=== PATIENT | male | born 1985 | race Caucasian/White ===

== ENCOUNTER 2018-08-16 12:24 | Emergency (ER) | payer SELFPAY ==
[~2018-08-16] VITALS: Ht 180.3 cm; Wt 79.5 kg
[2018-08-16 12:37] VITALS: BP 133/88; TEMP 98.2
[2018-08-16] MEDS ORDERED: DOXYCYCLINE 10100 MG PO (12:56)
[2018-08-16 13:02] VITALS: PULSE 60
== END 2018-08-16 13:03 | disposition home or self-care (01) ==
LOC: COL.ER 12:24
DX: K13.0 Diseases of lips (principal)

== ENCOUNTER 2018-08-22 14:39 | Emergency (ER) | payer SELFPAY ==
[~2018-08-22 14:39] MED LIST: DOXYCYCLINE 10100 MG PO
[2018-08-22 14:49] VITALS: BP 156/98; PULSE 67; TEMP 98.6
== END 2018-08-22 15:08 | disposition home or self-care (01) ==
LOC: COL.ER 14:39
DX: S01.511D Laceration without foreign body of lip, subsequent encounter (principal); X58.XXXD Exposure to other specified factors, subsequent encounter

== ENCOUNTER 2019-08-05 20:25 | Emergency (ER) | payer SELFPAY ==
[~2019-08-05] VITALS: Ht 172.7 cm; Wt 77.3 kg
[2019-08-05 20:29] VITALS: TEMP 98.8
[2019-08-05 21:40] VITALS: BP 136/90; PULSE 81
== END 2019-08-05 21:43 | disposition home or self-care (01) ==
LOC: COL.ER 20:25
DX: S63.502A Unspecified sprain of left wrist, initial encounter (principal); R40.2412 Glasgow coma scale score 13-15, at arrival to emergency department; F17.210 Nicotine dependence, cigarettes, uncomplicated; W17.89XA Other fall from one level to another, initial encounter; Y92.009 Unspecified place in unspecified non-institutional (private) residence as the place of occurrence of the external cause

== ENCOUNTER → 2019-10-23 | Emergency (ER) | payer SELFPAY | LOC: COL.ER 15:31 | DX: Z72.9 Problem related to lifestyle, unspecified (principal) ==